=== PATIENT | male | born 1975 | race Caucasian/White ===

== ENCOUNTER 2022-09-10 21:11 | Emergency (ER) | payer BC ==
[~2022-09-10] VITALS: Ht 177.8 cm; Wt 83.9 kg
[2022-09-10 21:24] VITALS: BP 155/56
--- NOTE | 2022-09-10 21:32 | NUR ---
Patient discharged to home in stable condition. Written and verbal after care instructions given. Patient verbalizes understanding of instruction.
--- NOTE | 2022-09-10 21:38 | NUR ---
Patient discharged to home in stable condition. Written and verbal after care instructions given. Patient verbalizes understanding of instruction.
[2022-09-10] MEDS ORDERED: BACITRACIN ZINC OINT PACKET 1 EA PACKET TP ONE (22:00)
== END 2022-09-10 21:38 | disposition home or self-care (01) ==
LOC: ER 21:16
DX: S61.011A Laceration without foreign body of right thumb without damage to nail, initial encounter (principal); W26.2XXA Contact with edge of stiff paper, initial encounter; Y93.89 Activity, other specified; Y92.89 Other specified places as the place of occurrence of the external cause; Y99.8 Other external cause status